=== PATIENT | male | born 1975 | race Caucasian/White ===

== ENCOUNTER 2022-10-15 02:14 | Emergency (ER) | payer OTHER ==
[2022-10-15] MEDS ORDERED: HYDROcodone/Acetaminophen 5/325 mg Tablet ONE (02:57)
== END 2022-10-15 03:14 | disposition home or self-care (01) ==
LOC: MADERS 02:14
DX: S62.616A Displaced fracture of proximal phalanx of right little finger, initial encounter for closed fracture (principal); I10 Essential (primary) hypertension; F17.200 Nicotine dependence, unspecified, uncomplicated; W01.0XXA Fall on same level from slipping, tripping and stumbling without subsequent striking against object, initial encounter; Z79.899 Other long term (current) drug therapy

== ENCOUNTER 2025-03-13 13:00 | Emergency (ER) | payer OTHER ==
[2025-03-13] MEDS ORDERED: Amoxicillin/Potassium Clav 875 MG TAB ONE (13:41)
[2025-03-13] MEDS ORDERED: NEOMYCIN-POLYMYXIN-HC EAR SUSP 200 DROP/10 ML BOT ONE (13:41)
== END 2025-03-13 13:57 | disposition home or self-care (01) ==
LOC: MADERS 13:00
DX: T16.2XXA Foreign body in left ear, initial encounter (principal); H61.23 Impacted cerumen, bilateral; S00.412A Abrasion of left ear, initial encounter; S00.411A Abrasion of right ear, initial encounter; H65.93 Unspecified nonsuppurative otitis media, bilateral; E11.9 Type 2 diabetes mellitus without complications; I10 Essential (primary) hypertension; F17.220 Nicotine dependence, chewing tobacco, uncomplicated; X58.XXXA Exposure to other specified factors, initial encounter
CPT/HCPCS: 69200; 69210